=== PATIENT | female | born 1950 | race Caucasian/White ===

== ENCOUNTER 2023-04-29 14:04 | Outpatient (CLI) | payer MEDICARE ==
[2023-04-29] MEDS ORDERED: Iopamidol 370 76% 75 ML VIAL FS ONE (15:05)
== END 2023-04-29 14:05 | disposition home or self-care (01) ==
LOC: CSHCT 14:04
PROVIDERS: ATTEND Family Medicine
DX: G44.52 New daily persistent headache (NDPH) (principal)
CPT/HCPCS: 70470; 82565; Q9967

== ENCOUNTER 2023-12-18 13:21 | Emergency (ER) | payer MEDICARE | END 2023-12-18 15:18 | disposition home or self-care (01) | LOC: CSHERS 13:21 | DX: S06.0X9A Concussion with loss of consciousness of unspecified duration, initial encounter (principal); E11.9 Type 2 diabetes mellitus without complications; W22.8XXA Striking against or struck by other objects, initial encounter; Y92.000 Kitchen of unspecified non-institutional (private) residence as the place of occurrence of the external cause | CPT/HCPCS: 70450; 72125 ==